=== PATIENT | female | born 1930 | race Caucasian/White ===

== ENCOUNTER 2017-09-07 19:25 | Emergency (ER) | payer MEDICARE, MEDICAID ==
[2017-09-07 19:25] VITALS: BMI 24.5
[2017-09-07 19:48] VITALS: BP 109/65; PULSE 78; RESP 20; TEMP 98.1; O2SAT 97
--- NOTE | 2017-09-07 21:44 | C.PDOC ---
History Of Present Illness 87 yr old female presents to the ER stating she fell 2 weeks ago and twisted her left ankle. According to the daughter, the patient has been walking but the pain has not improved prompting the visit. Denies leg pain, weakness or numbness of the foot. Time Seen by Provider: 09/07/17 19:55 Chief Complaint (Nursing): Lower Extremity Problem/Injury History Per: Patient History/Exam Limitations: no limitations Onset/Duration Of Symptoms: Days (2 weeks ago) Past Medical History Reviewed: Historical Data, Nursing Documentation, Vital Signs Vital Signs: Last Vital Signs Temp 98.1 F 09/07/17 19:46 Pulse 78 09/07/17 19:46 Resp 20 09/07/17 22:08 BP 109/65 09/07/17 19:46 Pulse Ox 97 09/07/17 21:57 - Medical History PMH: Fractures (COLLES' FX. LEFT RADIUS), Gall Bladder Disease, Hypercholesterolemia Surgical History: CABG, Cholecystectomy Family History: States: No Known Family Hx - Social History Hx Alcohol Use: No Hx Substance Use: No - Immunization History Hx Tetanus Toxoid Vaccination: No Hx Influenza Vaccination: Yes Hx Pneumococcal Vaccination: Yes Review Of Systems Except As Marked, All Systems Reviewed And Found Negative. Musculoskeletal: Positive for: Other ((+) Left ankle). Negative for: Leg Pain Neurological: Negative for: Weakness, Numbness Physical Exam - Physical Exam Appears: Non-toxic, No Acute Distress Skin: Warm, Dry, No Rash Head: Atraumatic, Normacephalic Oral Mucosa: Moist Cardiovascular: Rhythm Regular, No Murmur Respiratory: Normal Breath Sounds, No Rales, No Rhonchi, No Stridor, No Wheezing Extremity: Normal ROM, Capillary Refill (<2 secs), Other ((+) Swelling and tenderness to the left malleolus. Limited ROM secondary to pain.) Pulses: Left Dorsalis Pedis: Normal, Right Dorsalis Pedis: Normal Neurological/Psych: Oriented x3, Normal Speech, Normal Motor ED Course And Treatment O2 Sat by Pulse Oximetry: 97 (RA) Pulse Ox Interpretation: Normal Orthopedic Time Out: Side verified, Site verified Procedure: Splint Other:: Posterior splint Type: Long Consent obtained: Verbal Performed by: Mid-level Provider (Michele) Diagnosis: Fracture Capillary refill: Normal Distal Sensation: Normal Distal Motor Function: Normal Capillary Refill: Normal Compartment: Normal Distal Sensation: Normal Distal Motor Function: Normal Patient tolerated procedure: Well Medical Decision Making Medical Decision Making: PLAN: * X-Ray - Left Ankle, Left Foot * Tylenol PO Xrays are positive for fracture. Patient cannot walk in crutches and will use her own walker. Disposition - Disposition Referrals: Asif Diego MD [Staff Provider] - Disposition: HOME/ ROUTINE Disposition Time: 21:44 Condition: GOOD Additional Instructions: Follow up with the Orthopedist within 1-2 days. Return if worsened. 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 - Scribe Statement The provider has reviewed the documentation as recorded by the Scribe Marian Hitchcock All medical record entries made by the Scribe were at my direction and personally dictated by me. I have reviewed the chart and agree that the record accurately reflects my personal performance of the history, physical exam, medical decision making, and the department course for this patient. I have also personally directed, reviewed, and agree with the discharge instructions and disposition.
--- NOTE | 2017-09-08 08:22 | RAD ---
PROCEDURE: Left Ankle Radiographs. HISTORY: ankle injury, PAIN COMPARISON: None FINDINGS: BONES: There is nondisplaced avulsion fracture of the base of the lateral malleolus with local soft edema appearing moderate. JOINTS: Normal. No osteoarthritis. Ankle mortise maintained. Talar dome intact. No subluxation or dislocation. SOFT TISSUES: Normal. OTHER FINDINGS: None. IMPRESSION: Avulsion fracture at the base of the lateral malleolus with local soft tissue edema noted. No fracture distraction. No subluxation or dislocation at the left ankle joint.
--- NOTE | 2017-09-08 08:24 | RAD ---
PROCEDURE: Left Foot Radiographs. HISTORY: foot injury, pain COMPARISON: None. FINDINGS: BONES: No acute fractures appreciated throughout the left foot with attention front to the medial dorsal left foot by the technologist. JOINTS: Joint narrowing and cortical sclerosis appreciate throughout the interphalangeal joints diffusely as well as the 1st metatarsophalangeal joint and mildly throughout the midfoot joints on relatively diffuse basis as well. SOFT TISSUES: Normal. OTHER FINDINGS: None. IMPRESSION: No acute fracture or dislocation identified. Degenerative changes seen throughout the midfoot joints as well as the interphalangeal joints of the digits and the 1st metatarsal phalangeal joint.
== END 2017-09-07 22:08 | disposition home or self-care (01) ==
LOC: C.ER 19:25
DX: S82.892A Other fracture of left lower leg, initial encounter for closed fracture (principal); W18.30XA Fall on same level, unspecified, initial encounter